=== PATIENT | male | born 1955 | race Caucasian/White ===

== ENCOUNTER → 2018-09-08 | Outpatient (CLI) | payer BC, MEDICARE | LOC: COL.CAR 09-04 07:00 → COL.PUL 09-05 08:00 → COL.RAD 13:58 → COL.CARD 09-12 10:45 → COL.RAD 09-26 07:30 → COL.CARD 09-26 10:00 → COL.RAD 09-28 07:30 → COL.PUL 10-02 07:30 → COL.RAD 10-02 07:30 | DX: Z02.89 Encounter for other administrative examinations (principal) ==